=== PATIENT | female | born 1950 | race Caucasian/White ===

== ENCOUNTER → 2016-11-02 | Outpatient (CLI) | payer MEDICARE, MEDICAID ==
[~2016-11-02] MED LIST: BUME2TAB3; CYCL10TA9; FURO40TA4; HYDR1CAP2; HYDR1TAB8; KCL20TCR; LACT10SO33; PROP10TA8; SPIR100T
== END ==
LOC: RAD 13:06
PROVIDERS: ATTEND Nurse Practitioner Adult Health
DX: Z12.31 Encounter for screening mammogram for malignant neoplasm of breast (principal)
CPT/HCPCS: 77067